=== PATIENT | female | born 1955 | race Caucasian/White ===

== ENCOUNTER → 2018-07-23 | Outpatient (CLI) | payer OTHER ==
[~2018-07-23] MED LIST: LIDOCAINE 2%/EPI 1:100,000 20 ML VIAL. IJ ONE; LIDOCAINE WITH 8.4% SOD BICARB 3 ML DISP.SYRIN. INJ ONE
--- NOTE | 2018-07-24 18:07 | PATHOLOGY ---
[facility] Accession Number: [id number] . 01 Material submitted: . RIGHT BREAST TISSUE . 01 Clinical history: . Calcs in grid . 02 Diagnosis: Breast tissue, right breast needle biopsies: - FOCAL ATYPICAL DUCTAL EPITHELIAL PROLIFERATION SUSPICIOUS FOR DUCTAL CARCINOMA IN SITU. SEE COMMENT. - Mild fibrocystic changes. (JPM:[email or web address]; 07/24/2018) QMS/07/24/2018 . 02 Comment: Sections of the right breast needle biopsy reveal segments of breast tissue. There is a small focus of atypical ductal epithelial proliferation suspicious for low to intermediate grade ductal carcinoma in situ of cribriform type. This focus measures only 2 mm in greatest dimension. The remainder of the breast shows mild fibrocystic changes comprised of stromal fibrosis and focal mild duct ectasia. There are scattered calcifications associated with benign breast tissue. There are more concentrated microcalcifications associated with the small focus of atypical ductal epithelial proliferation. There is no evidence of invasive carcinoma. Breast prognostic studies will be obtained, the results of which will be reported separately. The case is also examined by Dr. Wise, who concurs with the diagnosis. (JPM:[email or web address]; 07/24/2018) . 02 Electronically signed: . Jonny Rueda MD, Pathologist NPI- [id number] . 01 Gross description: . Received in formalin labeled "Rina Ramirez, right breast tissue," are multiple needle cores of yellow-[place] fibrofatty tissue measuring 3.5 x 1.2 x 0.6 cm in aggregate dimensions. Additionally received is an orange cassette containing multiple needle cores of yellow-[place] fibrofatty tissue measuring 2.6 x 1.3 x 0.9 cm in aggregate dimensions. The tissue in the cassette is transferred to , and the remaining tissue is submitted in its entirety in cassette A2 and A3. The cold ischemic time is 8 minutes. The total formalin fixation time is 12 hours and 40 minutes. (TSD; 07/23/2018) TOB/TOB . 02 Pathologist provided ICD-10: D05.11 . 02 CPT . 617438 Specimen Comment: A courtesy copy of this report has been sent to Specimen Comment: [phone], . Specimen Comment: Report sent to and Performed at: 01 [facility] [address] [facility] [address], [place] [id number] MD Vel Peraza MD Phone: [phone] Performed at: 02 [facility] [address] [place] [id number] MD Jonny Rueda MD Phone: [phone]
--- NOTE | 2018-08-04 14:07 | RAD ---
Stereotactic right breast biopsy, 07/23/2018: History: Suspicious microcalcifications Previous mammograms demonstrated a cluster of suspicious microcalcifications in the posterior right breast at approximately the 12:00 location. Under local anesthesia, aseptic conditions and stereotactic guidance the mammotome vacuum-assisted biopsy instrument was passed into this region via a superior approach. Four 8 gauge vacuum-assisted samples were obtained. Specimen mammography demonstrated the targeted microcalcifications within the specimens. A biopsy marker was then deployed at the biopsy site. The biopsy instrument was removed and hemostasis obtained. Two-view postprocedural digital mammograms were obtained on a separate mammographic unit to document position of the biopsy marker. The patient tolerated the procedure well and left the department in good condition. The subsequent pathology report indicated the presence of atypical ductal epithelial proliferation suspicious for ductal carcinoma in situ. This is considered to be a concordant finding. Surgical consultation is indicated.
== END | disposition home or self-care (01) ==
LOC: MAMMO 07:59
PROVIDERS: ATTEND Internal Medicine
DX: N60.31 Fibrosclerosis of right breast (principal)
CPT/HCPCS: 19081; 77065; 88305; C1713; J3490; 19085; 77022